=== PATIENT | male | born 1935 | race Caucasian/White ===

== ENCOUNTER 2018-10-21 15:17 | Emergency (ER) | payer MEDICARE, OTHER ==
[~2018-10-21] VITALS: Ht 180.3 cm; Wt 78.9 kg
[~2018-10-21 15:17] MED LIST: ASPIRIN EC81 M1 PO; COENZYME PO; FAMOTIDINE PO; FISH OIL 1,0001 EAC5; FOLIC ACID0.4 MG PO; KEFLEX500 MG PO; LEXAPRO20 MG PO; MAVIK1 MG PO; NASONEX17 GM NS; PEPCID40 MG PO; PLAVIX 75 MG TA75 MG PO; PROSCAR 5MG TABL5 M1 PO; RESTORIL15 MG PO; TAMSULOSIN HCL0.4 MG; VYTORIN 10-201 EACH PO; Vitamin B 12; Vitamin B6 PO; [UNRECOGNIZED DRUG - OTHER]; asmanex PO; metamucil
[2018-10-21] MEDS ORDERED: ZOCOR20 MG PO (15:29)
[2018-10-21] MEDS ORDERED: CHEST CONGESTI400 MG PO (15:31)
[2018-10-21] MEDS ORDERED: CELEBREX 200 M200 M1 (15:31)
[2018-10-21] MEDS ORDERED: TRANDOLAPRIL2 MG PO (15:32)
[2018-10-21 16:38] VITALS: BP 158/80
== END 2018-10-21 16:38 | disposition home or self-care (01) ==
LOC: M.ERS 15:17
DX: K08.89 Other specified disorders of teeth and supporting structures (principal); R59.9 Enlarged lymph nodes, unspecified; Z95.1 Presence of aortocoronary bypass graft; Z95.5 Presence of coronary angioplasty implant and graft; Z90.5 Acquired absence of kidney

== ENCOUNTER 2020-11-06 11:08 | Emergency (ER) | payer MEDICARE, OTHER ==
[~2020-11-06] VITALS: Ht 180.3 cm; Wt 71.7 kg
[~2020-11-06 11:08] MED LIST changes: +CELEBREX 200 M200 M1; +CHEST CONGESTI400 MG PO; -FAMOTIDINE PO; +PEPCID20 MG PO; +RESTORIL15 M1 PO; -RESTORIL15 MG PO; +TRANDOLAPRIL2 MG PO; +ZOCOR20 MG PO
[2020-11-06] MEDS ORDERED: FLOVENT DISKU250 MCG INH (11:37)
[2020-11-06] MEDS ORDERED: CELEXA 20 MG TA20 MG PO (11:37)
[2020-11-06] MEDS ORDERED: TESSALON PERLE100 M1 PO (12:27)
[2020-11-06 12:53] VITALS: BP 128/69
== END 2020-11-06 12:53 | disposition home or self-care (01) ==
LOC: M.ERS 11:08
DX: U07.1 COVID-19 (principal); K44.9 Diaphragmatic hernia without obstruction or gangrene; Z95.1 Presence of aortocoronary bypass graft; Z95.5 Presence of coronary angioplasty implant and graft

== ENCOUNTER 2020-11-08 15:58 | Inpatient (IN) | payer MEDICARE, OTHER ==
[~2020-11-08] VITALS: Ht 180.3 cm; Wt 71.7 kg
[~2020-11-08 15:58] MED LIST changes: +CELEXA 20 MG TA20 MG PO; +FLOVENT DISKU250 MCG INH; +TESSALON PERLE100 M1 PO
[2020-11-08 16:01] VITALS: BP 153/65
[2020-11-08 16:46] LABS: BE 0 mmol/L (-2 to +3); PCO2 31.6 mmHg (35.0-45.0); PO2 66.6 mmHg (75.0-100.0); pH 7.476 (7.340-7.450)
[2020-11-08 16:47] LABS: ABSOLUTE LYMPHOCYTES 0.4 thou/uL (0.8-5.3); ABSOLUTE MONOCYTES 0.5 thou/uL (0.0-1.2); ABSOLUTE NEUTROPHILS 4.3 thou/uL (1.6-8.1); BASOPHILS 0.2 %; EOSINOPHILS 0.9 %; HEMATOCRIT 37.4 % (42.0-52.0); HEMOGLOBIN 12.7 gm/dL (14.0-18.0); LYMPHOCYTES 8.1 %; MCH 32.2 pg (26.0-34.0); MCHC 33.9 g/dL (28.0-37.0); MPV 7.5 fl. (7.2-11.1); NUCLEATED RBCS 0 /100WBC; PLATELET COUNT* 144 thou/uL (150-400); POLYS 80.8 %; RBC 3.93 mil/uL (4.50-6.00); RDW-CV 13.4 % (10.5-14.5); WBC 5.3 thou/uL (4.0-11.0)
[2020-11-08 17:04] LABS: CALCIUM 7.4 mg/dL (8.5-10.1); CREATININE 2.1 mg/dL (0.6-1.3); POTASSIUM 4.4 mmol/L (3.5-5.1)
[2020-11-08 17:08] LABS: ALBUMIN 2.7 g/dL (3.4-5.0); MAGNESIUM 1.8 mg/dL (1.8-2.4); TOTAL BILIRUBIN 0.3 mg/dL (<0.1-1.0); TOTAL PROTEIN 6.1 g/dL (6.4-8.2)
[2020-11-08 19:10] LABS: URINE BILIRUBIN NEGATIVE (Negative); URINE BLOOD 2+ (Negative); URINE CLARITY CLEAR; URINE COLOR YELLOW; URINE GLUCOSE-RANDOM NEGATIVE (Negative); URINE KETONES NEGATIVE (Negative); URINE LEUKOCYTES-REFLEX NEGATIVE (Negative); URINE NITRITE-REFLEX NEGATIVE (Negative); URINE PROTEIN 2+ (Negative); URINE SPECIFIC GRAVITY 1.025 (1.005-1.030); URINE UROBILINOGEN 0.2 E.U./dl (0.2-1.0)
[2020-11-08 19:25] LABS: SQUAMOUS 0-3 Few /LPF (0-3)
[2020-11-08 19:26] LABS: BACTERIA-REFLEX 1-9 Few /HPF (None Seen); MUCUS 0-3 Light strn/LPF (None Seen); URINE RBC 0-2 Rare /HPF (0-2); URINE WBC-REFLEX 0-5 Rare /HPF (0-5)
[2020-11-08 19:27] LABS: CASTS None Seen /LPF (None Seen); CRYSTALS None Seen /LPF (None Seen)
[2020-11-08 19:45] VITALS: BP 133/62
[2020-11-08 20:15] VITALS: BP 135/70
[2020-11-09] VITALS (8 sets, daily range): BP systolic 112–138; BP diastolic 59–70
--- NOTE | 2020-11-09 05:08 | NUR ---
PT SLEPT FAIRLY WELL AFTER RECEIVING HS MEDS. OCC CONGESTED COUGH HEARD. UP WITH SBA TO BSC TO VOID OVERNIGHT. TELE SR. LAC IVF INFUSING PER PUMP. TESSALON PERLES GIVEN FOR COUGH WITH GOOD RESULT. PULMONARY CONSULT FOR TODAY. ABLE TO USE CALL LITE AND MAKE NEEDS KNOWN. AOX4. O2 2L SAT 96%.
[2020-11-09 08:19] LABS: MAGNESIUM 1.9 mg/dL (1.8-2.4)
[2020-11-09 09:00] LABS: ABSOLUTE LYMPHOCYTES 0.7 thou/uL (0.8-5.3); ABSOLUTE MONOCYTES 0.6 thou/uL (0.0-1.2); ABSOLUTE NEUTROPHILS 3.7 thou/uL (1.6-8.1); BASOPHILS 0.2 %; EOSINOPHILS 0.7 %; HEMATOCRIT 36.1 % (42.0-52.0); HEMOGLOBIN 12.1 gm/dL (14.0-18.0); MCH 31.6 pg (26.0-34.0); MCHC 33.5 g/dL (28.0-37.0); MCV 94.4 fL (80.0-100.0); MONOCYTES 11.6 %; MPV 7.9 fl. (7.2-11.1); NUCLEATED RBCS 0 /100WBC; PLATELET COUNT* 138 thou/uL (150-400); POLYS 73.5 %; RBC 3.83 mil/uL (4.50-6.00)
[2020-11-09 09:07] LABS: PCO2 30.6 mmHg (35.0-45.0); pH 7.436 (7.340-7.450)
[2020-11-09 09:09] LABS: PO2 132.9 mmHg (75.0-100.0)
[2020-11-09 09:15] LABS: ALBUMIN 2.4 g/dL (3.4-5.0); CALCIUM 7.7 mg/dL (8.5-10.1); CREATININE 1.9 mg/dL (0.6-1.3); POTASSIUM 4.3 mmol/L (3.5-5.1); TOTAL BILIRUBIN 0.4 mg/dL (<0.1-1.0); TOTAL PROTEIN 5.4 g/dL (6.4-8.2)
--- NOTE | 2020-11-09 14:18 | NUR ---
PLASMA BEGAN AT 1320. PT BASELINE TEMPERATURE 98.7. AT 15 MINUTES POST BEGINNING PT TEMPERATURE 101.4. PT TEMP TAKEN 5 MINUTES LATER AND REMAINS THE SAME. PLASMA STOPPED AND TYLENOL GIVEN. PHYSICIAN PAGED.COOL CLOTH GIVEN AND PLACED BEHIND NECK. PT TEMPERATURE CURRENTLY DECREASED TO 100.0.PT HAS REMAINED ASYMPTOMATIC T/O PROCEDURE. WILL REASSESS.
--- NOTE | 2020-11-09 20:48 | NUR ---
PT RESTED T/O DAY IN BEDSIDE CHAIR. PT DID HAVE INCIDENT OF FEBRILITY,MANAGED WITH TYLENOL AND COOL CLOTH DURING PLASMA TRANSFUSION. OTHER DELEON VSS ON 2L NC AT 99%. SR ON MONITOR. PT GIVEN TESSALON PERLES TO MANAGE COUGH. PT EDUCATED ON TREATMENTS. PT IS REFUSING FALL PRECAUTIONS AND AMBULATING WITHOUT ASSIST. NOTHING FURTHER.CLWR.WCTM
[2020-11-10 00:57] VITALS: BP 134/65
[2020-11-10 04:45] VITALS: BP 163/86
--- NOTE | 2020-11-10 05:09 | NUR ---
PT SLEPT ON AND OFF OVERNIGHT, COUGHING KEPT PT AWAKE-RECEIVING TESSALON PERLES AND COUGH SYRUP PRN WITH FAIR RESULTS. O2 2L SATS 96-98%. UP AD HARRISON IN ROOM WITH OXYGEN OVERNIGHT. LAC SL IV, SOLUMEDROL GIVEN ORDERED. URINE AND SPUTUM SPECIMEN SENT TO LAB OVERNIGHT. AM LABS. ABLE TO USE CALL LITE AND MAKE NEEDS KNOWN.
[2020-11-10 06:46] LABS: HEMATOCRIT 37.9 % (42.0-52.0); HEMOGLOBIN 12.9 gm/dL (14.0-18.0); MCH 31.8 pg (26.0-34.0); MCHC 33.9 g/dL (28.0-37.0); MCV 93.6 fL (80.0-100.0); MPV 7.8 fl. (7.2-11.1); RBC 4.05 mil/uL (4.50-6.00); RDW-CV 13.1 % (10.5-14.5); WBC 4.1 thou/uL (4.0-11.0)
[2020-11-10 07:24] LABS: ALBUMIN 2.5 g/dL (3.4-5.0); CALCIUM 8.2 mg/dL (8.5-10.1); MAGNESIUM 2.3 mg/dL (1.8-2.4); TOTAL BILIRUBIN 0.3 mg/dL (<0.1-1.0); TOTAL PROTEIN 6.2 g/dL (6.4-8.2)
[2020-11-10 08:30] VITALS: BP 142/78
[2020-11-10 08:56] LABS: HIV-1/HIV-2 ANTIBODY Non Reactive (Non Reactive)
[2020-11-10 12:09] VITALS: BP 139/78
--- NOTE | 2020-11-10 14:08 | EKG ---
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: : 1935 Requested By: Fauzia Dhillon Order Number: [id number] Cholo MD: Didier Chung Measurements Intervals [place] Rate: 89 P: 55 WV: 202 QRS: 82 QRSD: 117 T: 29 QT: 329 QTc: 401 Interpretive Statements Sinus rhythm Atrial premature complex Probable left atrial enlargement Incomplete right bundle branch block Low voltage, extremity and precordial leads Compared to ECG 02/23/2013 11:05:48 Atrial premature complex(es) now present Incomplete right bundle-branch block now present Low QRS voltage now present Electronically Signed On 11-10-2020 14:08:23 WRAPPER OPERATOR by Didier Chung [email or web address] <ELECTRONICALLY SIGNED> By: Didier Chung MD, [facility] 11/10/20 1408 160 160 Didier Chung MD, [facility] /EPI
--- NOTE | 2020-11-10 16:40 | NUR ---
SPOKE WITH PT FAMILY MEMBER, YOUSIF, WITH UPDATE VIA TELEPHONE.
[2020-11-10 21:10] VITALS: BP 141/71
[2020-11-11 00:06] VITALS: BP 133/74
[2020-11-11 04:51] VITALS: BP 156/85
[2020-11-11 06:18] LABS: HEPATITIS B SURFACE AG Negative (Negative)
--- NOTE | 2020-11-11 06:54 | NUR ---
PATIENT SLEPT PART OF THE NIGHT. IV REMAINS SALINE LOCKED. PATIENT REMAINS ON RA. WILL CONTINUE TO MONITOR.
[2020-11-11 07:33] LABS: HEMATOCRIT 39.5 % (42.0-52.0); HEMOGLOBIN 13.2 gm/dL (14.0-18.0); MCHC 33.4 g/dL (28.0-37.0); MCV 93.1 fL (80.0-100.0); MPV 8.2 fl. (7.2-11.1); RBC 4.24 mil/uL (4.50-6.00); RDW-CV 13.4 % (10.5-14.5)
[2020-11-11 07:36] LABS: WBC 14.7 thou/uL (4.0-11.0)
--- NOTE | 2020-11-11 07:45 | NUR ---
ASSUMED CARE OF PATIENT THIS MORNING FROM NIGHT NURSE. PT IS DOING WELL, WITH NO CO OF PAIN OR NAUSEA AT THIS TIME. PT IS GOING HOME TODAY. PT WAS EDUCATED ON POC, DISEASE PROCESS AND USING THE CALL LIGHT FOR ASSISTANCE. WILL CONTINUE TO MONITOR.
[2020-11-11 07:46] LABS: ALBUMIN 2.8 g/dL (3.4-5.0); CREATININE 2.1 mg/dL (0.6-1.3); MAGNESIUM 2.3 mg/dL (1.8-2.4); POTASSIUM 4.2 mmol/L (3.5-5.1); TOTAL BILIRUBIN 0.4 mg/dL (<0.1-1.0); TOTAL PROTEIN 6.4 g/dL (6.4-8.2)
[2020-11-11 08:00] VITALS: BP 140/76
[2020-11-11] MEDS ORDERED: VENTOLIN HFA 1818 GM INH (09:44)
[2020-11-11] MEDS ORDERED: PREDNISONE 10 M10 MG PO (09:44)
--- NOTE | 2020-11-11 10:42 | NUR ---
PT.DID NOT ANSWER THE PHONE. SPOKE WITH HIS BROTHER, YOUSIF. EXPLAINED ROLE OF CM. HE SAID PT.LIVES ALONE. NO USE OF DME. IS INDEPENDENT NORMALLY. 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 HE HAS HER PHONE NUMBER IF NEEDED. DISCUSSED POC. CM WILL FOLLOW.
[2020-11-11 12:00] VITALS: BP 130/70
[2020-11-11 14:06] VITALS: BP 156/85
--- NOTE | 2020-11-11 14:31 | NUR ---
PT.TO DISCHARGE TODAY. NO DISCHARGE NEEDS. HIS BROTHER WAS CONCERNED TO HAVE TO PICK HIM UP TO TAKE HIM HOME. CM SUPPLIED TAXI VOUCHER FOR PT.S RIDE HOME.
--- NOTE | 2020-11-11 16:00 | NUR ---
PT WAS DISCHARGED HOME WITH A CAB VOUCHER. DISCHARGE INSTRUCTIONS DONE.
== END 2020-11-11 16:00 | disposition home or self-care (01) | DRG 177 ==
LOC: M.ERS 15:58 → M.ORTHSURG 18:13 → M.TBA-ER 18:13 → M.ORTHSURG 19:55
PROVIDERS: Internal Medicine; Personal Emergency Response Attendant; ADMIT Internal Medicine; ATTEND Internal Medicine
PROC: XW13325 Transfusion of Convalescent Plasma (Nonautologous) into Peripheral Vein, Percutaneous Approach, New Technology Group 5 (ICD-10-PCS; principal; 2020-11-09)
PROC: XW033E5 Introduction of Remdesivir Anti-infective into Peripheral Vein, Percutaneous Approach, New Technology Group 5 (ICD-10-PCS; principal; 2020-11-09)
DX: U07.1 COVID-19 (principal); J96.01 Acute respiratory failure with hypoxia; N17.0 Acute kidney failure with tubular necrosis; J84.9 Interstitial pulmonary disease, unspecified; A08.4 Viral intestinal infection, unspecified; I25.10 Atherosclerotic heart disease of native coronary artery without angina pectoris; J44.9 Chronic obstructive pulmonary disease, unspecified; E86.9 Volume depletion, unspecified; K21.9 Gastro-esophageal reflux disease without esophagitis; Z95.5 Presence of coronary angioplasty implant and graft; Z95.1 Presence of aortocoronary bypass graft; Z79.82 Long term (current) use of aspirin; Z79.899 Other long term (current) drug therapy

== ENCOUNTER 2020-11-18 07:41 | Inpatient (IN) | payer MEDICARE, OTHER ==
[~2020-11-18] VITALS: Ht 177.8 cm; Wt 71.7 kg
[~2020-11-18 07:41] MED LIST changes: +PREDNISONE 10 M10 MG PO; +VENTOLIN HFA 1818 GM INH; -Vitamin B 12; +Vitamin B 12 PO
[2020-11-18 07:49] VITALS: BP 146/98
[2020-11-18 07:50] VITALS: BP 146/98
[2020-11-18 08:24] LABS: HEMATOCRIT 40.1 % (42.0-52.0); HEMOGLOBIN 13.3 gm/dL (14.0-18.0); MCH 31.3 pg (26.0-34.0); MCHC 33.2 g/dL (28.0-37.0); MCV 94.1 fL (80.0-100.0); MPV 8.4 fl. (7.2-11.1); NUCLEATED RBCS 0 /100WBC; PLATELET COUNT* 352 thou/uL (150-400); RBC 4.26 mil/uL (4.50-6.00); RDW-CV 13.5 % (10.5-14.5); WBC 18.6 thou/uL (4.0-11.0)
[2020-11-18 08:33] LABS: CALCIUM 8.2 mg/dL (8.5-10.1); POTASSIUM 4.4 mmol/L (3.5-5.1)
[2020-11-18 08:37] LABS: APTT 21.4 Seconds (25.0-31.3); INR < 0.9; PROTIME 9.9 Seconds (9.20-11.50)
[2020-11-18 08:44] LABS: ALBUMIN 2.6 g/dL (3.4-5.0); TOTAL BILIRUBIN 0.5 mg/dL (<0.1-1.0); TOTAL PROTEIN 6.2 g/dL (6.4-8.2)
[2020-11-18 08:57] LABS: ABSOLUTE EOSINOPHILS 0.2 thou/uL (0.0-0.7); ABSOLUTE MONOCYTES 0.9 thou/uL (0.0-1.2); ABSOLUTE NEUTROPHILS 15.4 thou/uL (1.6-8.1); PLATELET ESTIMATE ADEQUATE
--- NOTE | 2020-11-18 10:15 | EKG ---
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: [facility] : 1935 Requested By: Chai Driver Order Number: [id number] MD: Mike Allred Measurements Intervals [place] Rate: 122 P: -62 [place]: 151 QRS: 77 QRSD: 116 T: 43 QT: 316 QTc: 451 Interpretive Statements Sinus tachycardia Right bundle branch block Baseline wander in lead(s) V3,V4,V5,V6 Compared to ECG 11/08/2020 16:03:22 Right bundle-branch block persists Sinus rate has increased Atrial premature complex(es) no longer present Electronically Signed On 11-18-2020 10:15:05 [place] by Mike Allred [email or web address] <ELECTRONICALLY SIGNED> By: Mike Allred MD, FACC 11/18/20 1015 0751 [id number] Mike Allred MD, FACC /EPI
[2020-11-18 11:25] VITALS: BP 118/47
[2020-11-18 13:00] VITALS: BP 144/75
[2020-11-18 21:21] VITALS: BP 158/87
[2020-11-19] VITALS: BP 157/89
[2020-11-19 04:00] VITALS: BP 168/96
[2020-11-19 04:45] LABS: ABSOLUTE LYMPHOCYTES 0.4 thou/uL (0.8-5.3); ABSOLUTE MONOCYTES 0.3 thou/uL (0.0-1.2); ABSOLUTE NEUTROPHILS 9.6 thou/uL (1.6-8.1); BASOPHILS 0.1 %; HEMATOCRIT 34.7 % (42.0-52.0); HEMOGLOBIN 11.6 gm/dL (14.0-18.0); LYMPHOCYTES 4.2 %; MCH 31.3 pg (26.0-34.0); MCHC 33.5 g/dL (28.0-37.0); MCV 93.5 fL (80.0-100.0); MONOCYTES 3.1 %; NUCLEATED RBCS 0 /100WBC; POLYS 92.6 %; RBC 3.72 mil/uL (4.50-6.00); RDW-CV 13.4 % (10.5-14.5); WBC 10.3 thou/uL (4.0-11.0)
[2020-11-19 04:57] LABS: PLATELET COUNT* 246 thou/uL (150-400)
[2020-11-19 05:00] LABS: CALCIUM 8.3 mg/dL (8.5-10.1); CREATININE 1.7 mg/dL (0.6-1.3); POTASSIUM 4.7 mmol/L (3.5-5.1)
[2020-11-19 08:40] VITALS: BP 145/79
[2020-11-19 11:46] VITALS: BP 107/50
[2020-11-19 16:59] VITALS: BP 148/82
[2020-11-19 21:40] VITALS: BP 123/87
[2020-11-20] VITALS: BP 173/93
[2020-11-20 03:44] VITALS: BP 155/83
[2020-11-20 05:18] LABS: ABSOLUTE LYMPHOCYTES 0.3 thou/uL (0.8-5.3); ABSOLUTE MONOCYTES 0.5 thou/uL (0.0-1.2); ABSOLUTE NEUTROPHILS 11.4 thou/uL (1.6-8.1); BASOPHILS 0.1 %; HEMATOCRIT 35.5 % (42.0-52.0); HEMOGLOBIN 11.9 gm/dL (14.0-18.0); LYMPHOCYTES 2.8 %; MCH 31.6 pg (26.0-34.0); MCHC 33.4 g/dL (28.0-37.0); MCV 94.6 fL (80.0-100.0); MONOCYTES 3.7 %; MPV 8.1 fl. (7.2-11.1); NUCLEATED RBCS 0 /100WBC; PLATELET COUNT* 259 thou/uL (150-400); POLYS 93.4 %; RBC 3.76 mil/uL (4.50-6.00); RDW-CV 13.7 % (10.5-14.5); WBC 12.2 thou/uL (4.0-11.0)
[2020-11-20 05:41] LABS: CALCIUM 8.4 mg/dL (8.5-10.1); CREATININE 1.9 mg/dL (0.6-1.3)
[2020-11-20 07:50] VITALS: BP 165/91
[2020-11-20] MEDS ORDERED: CEFDINIR300 MG PO (09:11)
[2020-11-20] MEDS ORDERED: PREDNISONE 10 M10 MG PO (09:11)
[2020-11-20 11:48] VITALS: BP 162/87
[2020-11-20 13:37] VITALS: BP 162/87
[2020-11-20 14:08] VITALS: BP 162/87
== END 2020-11-20 15:32 | disposition home health service (06) | DRG 177 ==
LOC: M.ERS 07:41 → M.ORTHSURG 10:51 → M.TBA-ER 10:51 → M.ORTHSURG 11:46
PROVIDERS: Family Medicine; ADMIT Internal Medicine; ATTEND Internal Medicine
DX: U07.1 COVID-19 (principal); J96.01 Acute respiratory failure with hypoxia; J15.6 Pneumonia due to other Gram-negative bacteria; J12.89 Other viral pneumonia; R04.2 Hemoptysis; Z95.1 Presence of aortocoronary bypass graft; Z95.5 Presence of coronary angioplasty implant and graft; Z98.49 Cataract extraction status, unspecified eye; Z87.81 Personal history of (healed) traumatic fracture; Z87.891 Personal history of nicotine dependence; Z79.899 Other long term (current) drug therapy; Z79.82 Long term (current) use of aspirin